=== PATIENT | female | born 1945 | race Hispanic/Latino ===

== ENCOUNTER 2017-08-22 09:20 | Outpatient (CLI) | payer MEDICARE ==
--- NOTE | 2017-08-22 14:37 | Mammography Report ---
BILATERAL DIGITAL SCREENING MAMMOGRAM with CAD : 08/22/17 09:20:00 CLINICAL: Routine screening. COMPARISON:08/21/16 [facility] mammogram FINDINGS: The breasts are heterogeneously dense, which may obscure small masses.Stable fibroglandular pattern with bilateral upper outer postsurgical architectural distortion at previous biopsy sites. No mass, spaces architectural distortion or suspicious calcifications. IMPRESSION: No mammographic evidence of malignancy. BI-RADS CATEGORY: 2 -- Benign RECOMMENDATION: Routine mammographic screening in one year.
== END 2017-08-22 09:21 | disposition home or self-care (01) ==
LOC: SPVWC 09:20
PROVIDERS: ATTEND Internal Medicine Hematology & Oncology
DX: Z12.31 Encounter for screening mammogram for malignant neoplasm of breast (principal)
CPT/HCPCS: 77067; G0202

== ENCOUNTER 2019-08-25 09:55 | Outpatient (CLI) | payer MEDICARE ==
--- NOTE | 2019-08-26 14:02 | Mammography Report ---
DIGITAL SCREENING MAMMOGRAM WITH CAD, 08/25/2019 INDICATION: Routine screening mammography. TECHNIQUE: Digital bilateral 2D mammography was obtained in the craniocaudal and mediolateral obliq ue projections. This examination was interpreted with the benefit of Computer-Aided Detection analysi s. COMPARISON: 08/24/2018 and 08/22/2017 FINDINGS: Breast Density: The breasts are heterogeneously dense, which may obscure small masses. There is no evidence of dominant mass, suspicious calcifications or architectural distortion in eithe r breast. Bilateral benign upper outer postsurgical scars. IMPRESSION: No mammographic evidence of malignancy. Follow up recommendation: Routine yearly BI-RADS Category 2: Benign. A "normal" or negative report should not discourage follow up or biopsy of a clinically significant f inding. A written summary of these findings will be mailed to the patient. The patient will be entered into a mammography reporting system which will generate a reminder letter for the patient's next appointmen t at the appropriate interval. The [employer] recommends yearly mammograms starting at age 40 and continuing as l fran as a woman is in good health. Breast MRI is recommended for women with an approximate 20-25% or greater lifetime risk of breast cancer, including women with a strong family history of breast or ova nicolasa cancer or who have been treated for Hodgkin's disease. Signer Name: Dariel Omalley MD Signed: 08/26/2019 1:57 PM Workstation Name: [id number]
== END 2019-08-25 09:56 | disposition home or self-care (01) ==
LOC: SPVWC 09:55
PROVIDERS: ATTEND Internal Medicine Hematology & Oncology
DX: Z12.31 Encounter for screening mammogram for malignant neoplasm of breast (principal)
CPT/HCPCS: 77067

== ENCOUNTER 2020-08-29 09:51 | Outpatient (CLI) | payer MEDICARE ==
--- NOTE | 2020-08-30 07:58 | Mammography Report ---
BILATERAL DIGITAL SCREENING MAMMOGRAM WITH CAD HISTORY: SCREENING MAMMO TECHNIQUE: Routine digital mammographic imaging performed. This examination was interpreted with stefany falk benefit of Computer-aided Detection analysis. COMPARISON: 08/25/2019, 08/24/2018, 08/22/2017. FINDINGS: Breast Density: scattered fibroglandular appearance of the breast tissue. Digital CC and MLO views demonstrate an asymmetry in the right subareolar breast. This is seen on the cc view only. Stable post surgical changes in the upper outer breasts bilaterally. IMPRESSION: Right subareolar breast asymmetry for which additional mammographic views and possible ultrasound is recommended. BIRADS 0-Incomplete: Needs additional imaging evaluation NOTE: WE WILL RECALL THE PATIENT FOR THIS ADDITIONAL EVALUATION. FURTHER INFORMATION: According to the [employer], yearly mammograms are recommend ed starting at age 40 and continuing as long as a woman is in good health. Clinical Breast Exams shou ld be part of a periodic health exam-about every 3 years for women in their 20s and 30s and every yea r for women 40 and over. Breast self exam is an option for women starting in their 20s. Any breast ch belinda noted on a breast self exam should be reported promptly to the patient's healthcare provider. Br east MRI is recommended for women with an approximately 20-25% or greater lifetime risk of breast can cer, including women with a strong family history of breast or ovarian cancer and women who have been treated for Hodgkin's disease. A negative Mammography report should not discourage follow up or biopsy of a clinically significant f inding and/or abnormality. Dense breast tissue may obscure small neoplasms. The patient will be entered into a reminder system with a target due date for the next screening mamm ogram. Signer Name: Bill Lou MD Signed: 08/30/2020 7:53 AM Workstation Name: [id number]
== END 2020-08-29 09:52 | disposition home or self-care (01) ==
LOC: SPVWC 09:51
PROVIDERS: ATTEND Internal Medicine Hematology & Oncology
DX: Z12.31 Encounter for screening mammogram for malignant neoplasm of breast (principal)
CPT/HCPCS: 77067

== ENCOUNTER 2020-09-11 12:45 | Outpatient (CLI) | payer MEDICARE ==
--- NOTE | 2020-09-11 14:28 | Mammography Report ---
RIGHT DIGITAL DIAGNOSTIC MAMMOGRAM WITH CAD CONVENTIONAL, 09/11/2020 RIGHT LIMITED BREAST ULTRASOUND CLINICAL INFORMATION / INDICATION: Patient presents as a callback from screening mammogram for furthe r evaluation of a nodular density in the right breast. ABNORMAL MAMMOGRAM TECHNIQUE: Digital right mammographic imaging was performed. Spot compression views were obtained. Li mited ultrasound was performed. This examination was interpreted with the benefit of Computer-Aided D etection (CAD) analysis. COMPARISON: Prior mammogram 08/29/2020 FINDINGS: Breast Density: The breasts are heterogeneously dense, which may obscure small masses. MAMMOGRAPHIC FINDINGS: There is a persistent 10 mm nodular density seen in the 12:00 position of the right breast, anterior to middle depth. ULTRASOUND FINDINGS: Targeted ultrasound evaluation was performed of the area of interest. Correspo nding with the nodular density seen mammographically, there is a 10 mm benign simple cyst seen in the right breast 11:00 position located 4 cm from the nipple. Additional benign fibrocystic change is se en in the 10-11 o'clock right breast. No suspicious solid lesion identified. IMPRESSION: 1. A benign simple cyst accounts for the mammographic finding. No suspicious mammographic or sonograp hic abnormality identified. Follow up recommendation: Routine yearly BI-RADS Category 2: Benign. A "normal" or negative report should not discourage follow up or biopsy of a clinically significant f inding. A written summary of these findings will be mailed to the patient. The patient will be entered into a mammography reporting system which will generate a reminder letter for the patient's next appointmen t at the appropriate interval. According to the [employer], yearly mammograms are recommended starting at age 40 and continuing as long as a woman is in good health. Breast MRI is recommended for women with an alice roximately 20-25% or greater lifetime risk of breast cancer, including women with a strong family his tory of breast or ovarian cancer and women who have been treated for Hodgkin's disease. Signer Name: Kassandra Mora MD Signed: 09/11/2020 2:24 PM Workstation Name: [id number]
== END 2020-09-11 12:46 | disposition home or self-care (01) ==
LOC: MAMMO 12:45
PROVIDERS: ATTEND Internal Medicine Hematology & Oncology
DX: N63.41 Unspecified lump in right breast, subareolar (principal); N60.01 Solitary cyst of right breast; R53.83 Other fatigue; I10 Essential (primary) hypertension

== ENCOUNTER 2021-09-12 09:49 | Outpatient (CLI) | payer MEDICARE ==
--- NOTE | 2021-09-12 15:01 | Mammography Report ---
DIGITAL SCREENING MAMMOGRAM WITH CAD, 09/12/2021 CLINICAL INFORMATION / INDICATION: Routine screening mammography. TECHNIQUE: Digital bilateral 2D mammography was obtained in the craniocaudal and mediolateral obliqu e projections. This examination was interpreted with the benefit of Computer-Aided Detection analysis . COMPARISON: 08/25/2019 FINDINGS: Breast Density: There are scattered areas of fibroglandular density. No dominant mass, suspicious calcifications, or architectural distortion in the left breast. There is a new 11 mm round well-circumscribed mass in the superior right breast at 12-1:00, anterior depth. T his will require further evaluation with ultrasound. Bilateral postsurgical scarring. Otherwise, no significant interval change. IMPRESSION: New right breast mass at 12-1:00, anterior depth. Recommend right breast ultrasound for f urther evaluation. Follow up recommendation: Ultrasound BI-RADS Category 0: Incomplete. Needs additional imaging evaluation and/or prior mammograms for claudia rison. A "normal" or negative report should not discourage follow up or biopsy of a clinically significant f inding. A written summary of these findings will be mailed to the patient. The patient will be entered into a mammography reporting system which will generate a reminder letter for the patient's next appointmen t at the appropriate interval. The [employer] recommends yearly mammograms starting at age 40 and continuing as l fran as a woman is in good health. Breast MRI is recommended for women with an approximate 20-25% or greater lifetime risk of breast cancer, including women with a strong family history of breast or ova nicolasa cancer or who have been treated for Hodgkin's disease. Signer Name: Dominique Mann MD Signed: 09/12/2021 2:56 PM Workstation Name: [id number]
== END 2021-09-12 09:50 | disposition home or self-care (01) ==
LOC: SPVWC 09:49
PROVIDERS: ATTEND Internal Medicine Hematology & Oncology
DX: Z12.31 Encounter for screening mammogram for malignant neoplasm of breast (principal); N63.12 Unspecified lump in the right breast, upper inner quadrant
CPT/HCPCS: 77067

== ENCOUNTER 2021-09-19 10:09 | Outpatient (CLI) | payer MEDICARE ==
--- NOTE | 2021-09-25 07:52 | Ultrasound Report ---
ULTRASOUND BREAST RIGHT LIMITED, 09/19/2021 CLINICAL INFORMATION / INDICATION: RIGHT BREAST MASS N63.11. Patient presents as a callback from scre ening mammogram for further evaluation of a nodular density in the right breast. TECHNIQUE: Targeted ultrasound evaluation was performed of the area of interest. COMPARISON: Prior mammogram 09/12/2021 FINDINGS: Corresponding with the nodular density seen mammographically, there is a benign cyst in the right david ast 12:00 position located 7 cm from the nipple measuring up to 10 x 7 x 8 mm. No suspicious sonograp hic abnormality identified. IMPRESSION: 1. A benign cyst accounts for the mammographic finding. No suspicious sonographic abnormality identif ied. Follow up recommendation: Routine yearly BI-RADS Category 2: Benign. A normal or "negative" report should not preclude biopsy or follow-up of a clinically suspicious find ing. Signer Name: Kassandra Mora MD Signed: 09/19/2021 11:25 AM Workstation Name: [email or web address]
== END 2021-09-19 10:10 | disposition home or self-care (01) ==
LOC: SPVWC 10:09
PROVIDERS: ATTEND Internal Medicine Hematology & Oncology
DX: N60.01 Solitary cyst of right breast (principal); I12.9 Hypertensive chronic kidney disease with stage 1 through stage 4 chronic kidney disease, or unspecified chronic kidney disease; N18.30 Chronic kidney disease, stage 3 unspecified; N63.11 Unspecified lump in the right breast, upper outer quadrant; D05.10 Intraductal carcinoma in situ of unspecified breast; Z23 Encounter for immunization; E53.8 Deficiency of other specified B group vitamins; R53.83 Other fatigue; D64.9 Anemia, unspecified; E55.9 Vitamin D deficiency, unspecified; Z85.43 Personal history of malignant neoplasm of ovary; Z79.899 Other long term (current) drug therapy

== ENCOUNTER 2022-03-21 09:38 | Outpatient (CLI) | payer MEDICARE ==
--- NOTE | 2022-03-21 11:02 | Ultrasound Report ---
ULTRASOUND BREAST RIGHT LIMITED, 03/21/2022 CLINICAL INFORMATION / INDICATION: D05.10 INTRADUCTAL CARCINOMA IN UNSPECIFIED BREAST. Short-term son ographic follow-up benign finding. TECHNIQUE: Targeted ultrasound evaluation was performed of the area of interest. COMPARISON: Right breast ultrasound 09/19/21. FINDINGS: There is a 9 mm rounded ovoid simple cyst at the 12:00 position 4 cm from the nipple. The cyst measur ed 9.5 mm previously. There is a 6.5 mm rounded ovoid simple cyst at the 11:30 position 4 cm from the nipple which was not seen previously. No suspicious abnormality is identified.. IMPRESSION: A couple of small benign simple cysts in the right superior breast. No suspicious sonogra phic abnormality. Follow up recommendation: Routine yearly screening mammogram. BI-RADS Category 2: BENIGN. A normal or "negative" report should not preclude biopsy or follow-up of a clinically suspicious find ing. Signer Name: Aleksandr Lo MD Signed: 03/21/2022 10:58 AM Workstation Name: [id number]
== END 2022-03-21 09:39 | disposition home or self-care (01) ==
LOC: US 09:38
PROVIDERS: ATTEND Internal Medicine Hematology & Oncology
DX: N60.01 Solitary cyst of right breast (principal); D05.10 Intraductal carcinoma in situ of unspecified breast; I10 Essential (primary) hypertension; R53.83 Other fatigue